=== PATIENT | female | born 1970 | race Hispanic/Latino ===

== ENCOUNTER 2025-02-18 10:44 | Emergency (ER) | payer BC ==
[~2025-02-18] VITALS: Ht 162.6 cm; Wt 104.3 kg
--- NOTE | 2025-02-18 10:59 | NUR ---
PATIENT TO CT WITH ED RN
--- NOTE | 2025-02-18 11:04 | ERN ---
ED Note History of Present Illness Stated Complaint: SLURRED SPEECH Chief Complaint: Stroke Symptoms Time Seen by MD: 10:49 Time Seen by Midlevel: 10:49 Dictation: 54-year-old female who presents to the ED for evaluation of slurred speech onset this morning. Patient reports she woke up at 7:00 a.m. this morning was doing chores around the house but then around 830 her daughter knows that she was doing dishes parents are showing signs of slurred speech and seemed altered. No past medical history. No recent falls, trauma. Patient denies headache, blurry vision, dizziness, chest pain Allergies: Coded Allergies: No Known Drug Allergies (Unverified Allergy, Unknown, 02/18/25) Past Medical History Past Medical History: Hypertension Surgical History: Other Surgical History Other: CARPAL TUNNEL SX RN Note Reviewed/Agreed w/PFSH: Yes Review of System Dictation Constitutional: Negative for fever,chills, and weight loss Eyes: Negative for injury, pain,redness, and discharge ENT: Negative for injury,pain or swelling Cardiovascular: Negative for chest pain, palpitations, and edema Respiratory: Negative for shortness of breath, cough, and wheezing, Abdomen/GI: Negative for abdominal pain, nausea, vomiting, diarrhea, and constipation Back: Negative for injury and pain : Negative for injury, bleeding and discharge MS/Extremity: Negative for injury and deformity Skin: Negative for rash, and discoloration Neuro: Negative for headache, weakness, numbness, tingling, and seizure Psych: Negative for suicide ideation, homicidal ideation, and hallucinations Review of Systems: was completed Initial Vital Sign VS Vital Signs Date Time Temp Pulse Resp B/P (MAP) Pulse Ox O2 Delivery O2 Flow Rate FiO2 02/18/25 10:47 97.9 72 18 187/116 100 Room Air 02/18/25 11:25 0 21 Physical Exam Dictation General: awake, alert, NAD Head/Face: Normocephalic, atraumatic Eyes: PERRL, EOMI, vision at baseline ENT: oral cavity clear, TMs clear, no signs of infection Neck: Trachea midline, supple, no nuchal rigidity Cardiovascular: RRR, normal S1/S2, No MRGs, no JVD Respiratory: CTAB, no respiratory distress, No rales or wheezes Abdomen: Soft, non-tender, non-distended, normal bowel sounds, no guarding or rebound. Skin: Warm, dry, normal turgor, no rash MS/Extremity: Pulses equal, no cyanosis, neurovascular intact, FROM Neuro: COAx4, GCS 15, strength 4/5 RUE psychiatric aide strength, altered gait, slurred speech Psych: Normal behavior, mood, and affect normal Results (Laboratory/Radiology) Laboratory/Radiology Laboratory Tests Test 02/18/25 11:44 02/18/25 12:28 White Blood Count 4.8 K/uL (4.8-10.8) Red Blood Count 4.60 MIL/uL (4.00-5.50) Hemoglobin 13.5 g/dL (12.0-16.0) Hematocrit 39.9 % (36-48) Mean Corpuscular Volume 86.7 fL (79-99) Mean Corpuscular Hemoglobin 29.3 pg (27.0-33.0) Mean Corpuscular Hemoglobin Concent 33.8 g/dL (32.0-36.0) Red Cell Distribution Width 12.8 % (11.0-15.5) Platelet Count 198 K/uL (130-400) Mean Platelet Volume 11.2 fL (7.5-10.5) H Immature Granulocyte % (Auto) 0.2 % (0-1) Neutrophils (%) (Auto) 46.5 % (40.0-77.0) Lymphocytes (%) (Auto) 43.4 % (21.0-51.0) Monocytes (%) (Auto) 8.4 % (3.0-13.0) Eosinophils (%) (Auto) 1.3 % (0.0-8.0) Basophils (%) (Auto) 0.2 % (0.0-5.0) Neutrophils # (Auto) 2.2 K/uL (1.8-7.7) Lymphocytes # (Auto) 2.1 K/uL (1.0-4.8) Monocytes # (Auto) 0.4 K/uL (0.1-1.0) Eosinophils # (Auto) 0.06 K/uL (0.00-0.70) Basophils # (Auto) 0.01 K/uL (0.00-0.20) Absolute Immature Granulocyte (auto 0.01 K/uL (0-1) Nucleated Red Blood Cells 0.0 % (0.0-0.19) Prothrombin Time 10.5 SEC (9.6-11.6) Prothromb Time International Ratio 0.99 (0.85-1.15) Activated Partial Thromboplast Time 26.1 SEC (26.3-35.5) L Sodium Level 142 mmol/L (136-145) Potassium Level 4.2 mmol/L (3.5-5.1) Chloride Level 106 mmol/L (101-111) Carbon Dioxide Level 29 mmol/L (21-32) Blood Urea Nitrogen 15 mg/dL (7-18) Creatinine 0.7 mg/dL (0.5-1.0) Glomerular Filtration Rate Calc 104 mL/min (>90) Random Glucose 91 mg/dL (70-105) Total Calcium 9.0 mg/dL (8.5-10.1) Total Creatine Kinase 93 U/L (21-232) Troponin I High Sensitivity 4 ng/L (4-50) LDL Cholesterol 94 mg/dL (0-99) Urine Color LIGHT-YELLOW (YELLOW) Urine Appearance CLEAR (CLEAR) Urine pH 6.0 (5.0-8.0) Urine Specific [place] 1.018 (1.001-1.031) Urine Protein NEGATIVE mg/dL (NEGATIVE) Urine Glucose (UA) NEGATIVE mg/dL (NEGATIVE) Urine Ketones NEGATIVE mg/dL (NEGATIVE) Urine Occult Blood NEGATIVE (NEGATIVE) Urine Nitrate NEGATIVE (NEGATIVE) Urine Bilirubin NEGATIVE mg/dL (NEGATIVE) Urine Urobilinogen 0.2 mg/dL (0.2-1.0) Urine Leukocyte Esterase NEGATIVE Alvarado/uL Labs Reviewed?: Yes EKG: (+) NSR EKG Comment: Date:02/18/25 Time: 1135 Ventricular rate:55 AR interval:158 QRS duration: 95 QT/QTc:472 EKG interpretation: Sinus rhythm, no STEMI Reviewed by ED Attending ED Course ED Course Orders Procedure Category Date Status Time Ct Head/Brain W/O CT 02/18/25 Resulted Contrast 10:54 Cbc With Differential LAB 02/18/25 Complete 10:54 Prothrombin Time With LAB 02/18/25 Complete INR 10:54 Partial LAB 02/18/25 Complete Thromboplastin Time 10:54 Chest 1vw RAD 02/18/25 Resulted 10:54 12 Lead Ekg Tracing- EKG 02/18/25 Complete Technical 10:54 Creatine Kinase, Total LAB 8/13/25 Complete 10:54 Ldl Direct LAB 02/18/25 Complete 10:54 Troponin I High LAB 02/18/25 Complete Sensitivity 10:54 Urinalysis Profile LAB 02/18/25 Complete 10:54 Bedside Glucose CPOE 02/18/25 Transmitted Fingerstick 10:54 Vital Signs Per CPOE 02/18/25 Transmitted Routine 10:54 Cardiac Monitoring CPOE 02/18/25 Transmitted 10:54 Complete Nih Stroke CPOE 02/18/25 Transmitted Scale 10:54 Basic Metabolic Panel LAB 02/18/25 Complete 10:54 Type And Screen BBK 02/18/25 Complete 11:17 Labetalol 20mg Syg PHA 02/18/25 Complete (Trandate 20mg Syg) 11:17 Nicardipine 25mg Inj PHA 02/18/25 Complete (Cardene 25mg Inj) 12:00 Nicardipine 25mg Inj PHA 02/18/25 Complete (Cardene 25mg Inj) 12:01 Nurse Driven Lynn MIKE 02/18/25 Complete Removal Pro 12:40 Tenecteplase (Tnkase) PHA 02/18/25 Complete 12:05 Morphine 2mg Syg PHA 02/18/25 Complete (Morphine 2mg Syg) 14:49 Ondansetron 4mg Inj PHA 02/18/25 Complete (Zofran 4mg Inj) 14:49 Current Medications Medications (Trade) Dose Ordered Sig/[place] Route PRN Reason Start Time Stop Time Status Last Admin Dose Admin Labetalol HCl (TRANdate 20MG SYG) 10 mg ONCE STAT IV 02/18/25 11:17 02/18/25 11:19 DC 02/18/25 11:36 Morphine Sulfate (morPHINE 2MG SYG) 1 mg ONCE STAT IVP 02/18/25 14:49 02/18/25 14:54 DC 02/18/25 15:10 Nicardipine HCl (CarDENE 25MG INJ) 25 mg STK-MED ONCE IV 02/18/25 12:01 02/18/25 12:01 DC Nicardipine HCl 25 mg/Sodium Chloride 250 ml @ 0 mls/hr PROTOCOL IV 02/18/25 12:00 02/18/25 15:17 DC 02/18/25 12:17 Ondansetron HCl (zoFRAN 4MG INJ) 4 mg ONCE STAT IVP 02/18/25 14:49 02/18/25 14:54 DC 02/18/25 15:10 Tenecteplase (TNKase) 25 mg ONCE ONCE IV 02/18/25 12:05 02/18/25 12:58 DC 02/18/25 13:09 Vital Signs Date Time Temp Pulse Resp B/P (MAP) Pulse Ox O2 Delivery O2 Flow Rate FiO2 02/18/25 15:14 71 15 154/109 99 Room Air* 0 02/18/25 15:05 71 15 141/93 99 Room Air* 0 02/18/25 14:35 72 15 142/100 99 Room Air* 0 02/18/25 14:05 71 17 125/97 99 Room Air* 0 02/18/25 13:50 73 17 133/94 100 Room Air* 0 02/18/25 13:35 74 17 143/100 99 Room Air* 0 02/18/25 13:20 75 16 152/102 100 Room Air* 0 02/18/25 13:06 59 16 134/86 100 Room Air* 0 02/18/25 12:50 72 17 166/106 100 Room Air* 0 02/18/25 12:35 65 14 146/99 100 Room Air* 0 02/18/25 12:17 67 153/101 02/18/25 12:15 63 13 160/107 100 Room Air* 0 02/18/25 12:00 67 13 153/101 100 Room Air* 0 02/18/25 11:45 98.1 58 15 164/111 99 Room Air* 0 02/18/25 11:36 67 157/101 02/18/25 11:25 67 14 180/120 97 Room Air* 0 02/18/25 10:47 97.9 72 18 187/116 100 Room Air 1050 Initial NIH of 3 and care transitioned to ER attending Dr. Carr. Negative Head CT ER attending Dr. Carr discussed the case with teleneuro who agrees with NIH of 3 and recommends to give tnk as patient is within window. Started on 10mg of labetalol with continued hypertension so Nicardipine drip was initiated with improvement in blood pressure [address] Carr also spoke with Dr. Silveira neurologist, from [facility] and also spoke with hospitalist Dr. Cohn from [facility] as now we are awaiting callback ICU from [facility] for transfer. Medical Decision Making MDM MDM: Differential diagnosis: Stroke, TIA, subdural, SAH, uncontrolled hypertension, hypoglycemia, Rationale: Tests considered and ordered secondary to shared decision making include: Previous outside records reviewed: Old ER visits. Medications-Per medication reconciliation Need for hospitalization: Patient does meet criteria for hospitalization. Need for emergency major/minor surgery: No Patient's prior external medical records from other ER visits were reviewed by me as indicated. Prior testing and results from previous visits were reviewed. Prior tests were taken into account with medical decision making and resource utilization, independent historian/historians were used to obtain complete medical history. I independently interpreted the test that were performed, results were reviewed by me and considered findings on radiology if ordered. Medical management and examination interpretation discussions were had by me with other qualified healthcare professionals as indicated for the patient's care. Patient's care transitioned to attending Dr. Carr NIH 3, after negative CT scan of the head and considering TNK, attempted to manage blood pressure with 10 mg of labetalol with slight improvement but continued hypertension above the criteria for TNK. Patient was started on nicardipine ordered by my attending and after blood pressure has improved TNK was given at 1205 at approximate 3.5hr jesús after discussion with risk and benefits and recommendation from teleneuro Dr. Fulton. Dr. Carr also spoke with Dr. Silveira neurologist, from [facility] and also spoke with hospitalist Dr. Cohn from [facility] as now we are awaiting callback ICU from [facility]. And patient will be transferred to [facility]. Critical Care Note Critical Time: 45 minutes Comment(s) Total critical care time was 45 minutes. Excluding time for procedures. Management of critically ill patient with concern for acute decompensation. Management included interpretation of laboratory values and imaging, hemodynamics, time for consultation with consultants and admitting physician. Stroke Patient?: Ischemic Is Patient Candidate for t-PA?: Yes Did the Patient Receive t-PA?: Yes NIH STROKE SCALE: NIH STROKE SCALE Response (Comments) Value Level of Consciousness Alert 0 Ask patient month and their age Answers both correct 0 Command to open eyes, make fist and let go Obeys both correct 0 Best gaze (horizontal eye movement) Normal 0 Visual Field Testing No Visual Field Loss 0 Facial Paresis Normal / Symmetrical 0 Motor Function - Left Arm Normal 0 Motor Function - Right Arm Drift 1 Motor Function - Left Leg Normal 0 Motor Function - Right Leg Drift 1 Limb Ataxia No Ataxia 0 Sensory-pin prick to arms, legs, trunk and face Normal 0 Best Language (describe picture, name items and read) No Aphasia 0 Dysarthria (read several words) Mild-Mod. Slurring Words 1 Extinction and Inattention Normal 0 Total 3 Neuro Comment: Teleneuro discussed risks and benefits with the patient and family and recommended TNK. DX & DISP Disposition: Inpatient Decision to Admit Date: Feb 18, 2025 Decision to Admit Time: 10:49 Departure Impression: Primary Impression: Stroke Critical Time: 45 minutes Condition: Stable Referrals: SELF,REFERRAL (PCP) I have examined patient, & reviewed all documents, & agreed W/ the Diagnosis, and Plan BEN PATEL Feb 18, 2025 11:04
--- NOTE | 2025-02-18 11:06 | NUR ---
PATIENT BACK FROM CT [facility] ED RN
--- NOTE | 2025-02-18 11:29 | HMCIMG ---
EXAM: Non-contrast CT examination of the Brain CLINICAL HISTORY: Stroke. Slurred speech. Left-sided weakness. Dysphagia. TECHNIQUE: Thin collimated axial CT images of the brain were obtained, with sagittal and coronal reformatted images also submitted. CT scan done according to ALARA (As Low as Reasonably Achievable). CONTRAST USED: None. COMPARISON: None provided. FINDINGS: No acute intracranial abnormality is present. No acute cortical infarction, hemorrhage, mass, or mass effect. No hydrocephalus or abnormal extra-axial fluid collections. The posterior fossa is unremarkable. The skull base and calvarium are intact. Hyperostosis frontalis interna. The included portions of the paranasal sinuses and mastoid air cells are clear. IMPRESSION: No acute intracranial abnormality is present. If clinical concern persist recommend MRI of the brain for further evaluation. /[place]
--- NOTE | 2025-02-18 11:40 | EKG ---
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
[2025-02-18 11:45] VITALS: TEMP 98
--- NOTE | 2025-02-18 11:48 | HMCIMG ---
EXAM: CR Chest, 1 View. CLINICAL HISTORY: stroke COMPARISON: None provided. FINDINGS: LUNGS: There is no mass, infiltrate, or acute pulmonary abnormality. PLEURAL SPACES: No pleural effusion or pneumothorax. MEDIASTINUM: Cardiac size and mediastinal contours within normal limits. BONES: No aggressive appearing osseous lesion seen. IMPRESSION: No acute cardiopulmonary pathology is evident. /[place]
[2025-02-18 11:53] LABS: IMMATURE GRANULOCYTE ABSOLUTE 0.01 K/uL (0-1); NUCLEATED RED BLOOD CELLS 0.0 % (0.0-0.19); PLATELET COUNT (AUTO) 198 K/uL (130-400); RED BLOOD CELL COUNT(AUTO) 4.60 MIL/uL (4.00-5.50); RED CELL DISTRIBUTION WIDTH 12.8 % (11.0-15.5); WHITE BLOOD COUNT (AUTO) 4.8 K/uL (4.8-10.8)
--- NOTE | 2025-02-18 12:00 | NUR ---
TRANSFER REQUEST FOR NEUROLOGY SERVICE TO [facility] [place] PER [place] SIDHU. MARINA NEWMAN
[2025-02-18 12:03] LABS: CREATININE 0.7 mg/dL (0.5-1.0); GLOMERULAR FILTR. RATE CALC 104.0 mL/min (>90); GLUCOSE,RANDOM 91.0 mg/dL (70-105); INR 0.99 (0.85-1.15); SODIUM SERUM 142.0 mmol/L (136-145); UREA NITROGEN, BLOOD 15.0 mg/dL (7-18)
[2025-02-18 12:09] LABS: CREATINE KINASE, TOTAL 93.0 U/L (21-232); LDL DIRECT 94.0 mg/dL (0-99)
--- NOTE | 2025-02-18 12:18 | NUR ---
TENET TRANSFER CALLED AT THIS TIME TO ARRANGE TRANSFER; PENDING CALL BACK
--- NOTE | 2025-02-18 12:19 | CONS ---
CONSULT NOTE: [place] Neuro Note # Demographics Consult Type: Acute Stroke Level 1 (0-4.5 hrs) Patient Location: Emergency Room First Name: PRO Solano Last Name: ANNIE Date of : 1970 Age: 54 Gender: Female Facility: [facility] Time of Initial Page (Central Time): 02/18/2025 11:46 First Contact with Site (Central Time): 02/18/2025 11:46 # HPI Chief Complaint: - speech changes History: 54 y/o woman presented with speech changes, ambulation difficulties. Patient reports speech was last normal earlier today at 8 AM. Noticed speech difference 8:30 AM. Difficulty getting words out. No associated pain. No similar symptoms previously. No prior stroke. Possible Thrombolytic candidate: - not on warfarin or NOACs - no intracranial hemorrhage history - no recent major surgery - no known active major internal bleeding # Scores Time of exam and NIHSS (Central Time): 02/18/2025 11:50 Level of Consciousness 1a: [0] = Alert; keenly responsive LOC Questions 1b: [0] = Answers both questions correctly LOC Commands 1c: [0] = Performs both tasks correctly Best Gaze 2: [0] = Normal Visual 3: [0] = No visual loss Facial Palsy 4: [0] = Normal symmetrical movements Motor Arm Left 5a: [0] = No drift Motor Arm Right 5b: [0] = No drift Motor Leg Left 6a: [0] = No drift Motor Leg Right 6b: [0] = No drift Limb Ataxia 7: [0] = Absent Sensory 8: [1] = Lgji-fl-[id number] sensory loss Best Language 9: [1] = Yazx-pt-[id number] aphasia Dysarthria 10: [0] = Normal Extinction and Inattention 11: [0] = No abnormality NIHSS Total: 2 # Data Head CT: - no bleed - per radiologist read # Assessment Impression: - Other speech changes, possible stroke # Plan Thrombolytic/Intervention: IV Thrombolysis Thrombolytic Dosing: IV alteplase 0.9 mg/kg, max dose 90 mg; 10% of dose given over 1 minute IVP, remaining 90% given as infusion over 1 hour Intraarterial Exclusion: - clinical exam not consistent with presence of large vessel occlusion (LVO), can reconsider if LVO found on vascular imaging Time IV Thrombolytic Recommended (Central Time): 02/18/2025 11:54 Target Blood Pressure: SBP < 180 Labs: - hemoglobin A1c - lipid panel Imaging: (urgency: STAT): - CT Angiogram Head and CT Angiogram Neck AND call back with results if abnormal Imaging: (urgency: routine): - MRI Brain without contrast Diagnostic Test: - echo with bubble study Therapy/Evaluation: - PT/OT evaluation - speech/swallow consultation Medication: - start statin with goal of LDL < 70 Thrombolytic Administration Recommendations: - I reviewed the risks/benefits/alternatives of IV thrombolytic therapy with the patient. They understand there is potential of life threatening hemorrhage from IV thrombolysis. I stated that I believe benefits outweighs risk. They wish to proceed with IV thrombolytic therapy. - I have collected independent history specific to time last normal or last known well. We have collaborated with the ED provider and at this time, we have the most current timeline with the information that is available. - BP goal< 180/105 for 24hrs post Thrombolytic administration - Use Labetalol 10-20mg IV prn or Nicardipine gtt to maintain BP parameters - No antiplatelets or anticoagulants for next 24 hrs unless indicated for emergent IA procedure or other life threatening situation - ICU admission - Call back if there is any decline in neurological condition - symptoms deemed to be disabling, despite low NIHSS Other: - If patient has any neurological deterioration please call me back immediately - LDL < 70 - permissive hypertension - telemetry monitoring - I have discussed my recommendations with the referring provider # Logistics Attestation of consult completion: The patient is located at: [facility]. Facility staff participated in the visit. I performed this telemedicine visit from my offsite office utilizing interactive 2 way audio and visual telecommunication technology at the request of the onsite emergency room provider. Total time spent in telemedicine encounter: I spent 15 minutes reviewing clinical data and/or imaging, obtaining history, examining the patient, communicating with the onsite care team, and in preparation of this report. Critical Care time: 15 minutes of this encounter were critical care time. Due to a high probability of clinically significant, life-threatening neurologic deterioration, the patient required my highest level of preparedness to intervene emergently. I spent this critical care time managing the patient in conjunction with on-site providers who requested my consultation. In addition to the above, this critical care time included recommendation and review of studies, including imaging; arranging an urgent treatment and management plan with on-site providers; evaluation of patient's response to treatment; and documentation. This critical care time was performed to assess and manage the high probability of imminent, life-threatening deterioration that could result in neurologic catastrophe. # Demographics First Name: PRO Solano Last Name: ANNIE Facility: [facility] ISHAN TRENT MD Feb 18, 2025 12:19
--- NOTE | 2025-02-18 12:21 | NUR ---
TRANSFER MET WITH PT AND FAMILY INFORM OF TRANSFER PROCESS ALL VERBLIZED UNDERSTANDING AND TRANSFER CONSENT SIGNED BY PT . MARINA NEWAMN
[2025-02-18 12:37] LABS: APPEARANCE,URINE CLEAR (CLEAR); GLUCOSE, URINE (UA) NEGATIVE (NEGATIVE); LEUKOCYTE ESTERASE ,URINE NEGATIVE Leu/uL (NEGATIVE); NITRATE,URINE NEGATIVE (NEGATIVE); OCCULT BLOOD,URINE NEGATIVE (NEGATIVE)
[2025-02-18 12:40] LABS: ADD UA MICROSCOPIC NO
--- NOTE | 2025-02-18 13:30 | NUR ---
TRANSFER CALL BACK WITH ACCEPTANCE UNDER DR BAIG TO ROOM 1331 AND PRIMARY NURSE TO CALL REPORT TO [phone]. MARINA NEWMAN
--- NOTE | 2025-02-18 13:43 | NUR ---
[place] [facility] [place]SE STATES HOLD ON TRANSFER PT WILL BE ASSIGNED A NEW ROOM , SO NOW AWAITING A CALL BACK. ER MADE AWARE. MARINA NEWMAN
--- NOTE | 2025-02-18 14:46 | NUR ---
[place] [facility] [place] WITH NEW BED ASSIGNMENT ROOM 1231 AND PRIMARY NURSE TO CALL REPORT TO [phone] AND EMS WHEN READY. MARINA NEWMAN
--- NOTE | 2025-02-18 14:55 | NUR ---
REPORT CALLED TO [facility] [place] [place] [facility] TO SANDIE NEWMAN ON TRANSFER. NO FURTHER QUESTIONS ASKED AT THIS TIME./BENITA
--- NOTE | 2025-02-18 14:56 | NUR ---
[facility] NOTIFIED OF EMERGENT TRANSFER;
[2025-02-18 15:14] VITALS: BP 154/109; PULSE 71; RESP 15; O2SAT 99
--- NOTE | 2025-02-18 15:15 | NUR ---
[facility] ARRIVED TO TRANSPORT PT TO [facility]./BENITA
== END 2025-02-18 15:17 | disposition short-term general hospital (02) ==
LOC: EDH 10:44
DX: I63.9 Cerebral infarction, unspecified (principal); I10 Essential (primary) hypertension
CPT/HCPCS: 99291; 96365; 96375; 70450; 82550; 83721; 84484; 80048; 85025; 85610; 85730; 86850; 86900; 86901; 81003; 36415; 71045; 93005; J3101; J2270; J3490; J2405